=== PATIENT | female | born 1990 | race Caucasian/White ===

== ENCOUNTER 2017-07-03 07:54 | Inpatient (IN) | payer BC ==
[~2017-07-03] VITALS: Ht 167.6 cm; Wt 75.0 kg
--- OUTSIDE RECORDS SUMMARY | ~2017-07-03 | XMS | Clinical Summary ---
Demographics + + + | Address | [address] | | | [place] [address] | + + + | Home Phone | | + + + | Preferred Language | Unknown | + + + | Marital Status | | + + + | Gnosticism Affiliation | 1013 | + + + | Race | Unknown | + + + | Ethnic Group | Unknown | + + + Author + + + | Author | [facility] | | | [facility] | + + + | Organization | [facility] | | | [facility] [place] | + + + | Address | Unknown | + + + | Phone | Unavailable | + + + Support + + + + + | Name | Relationship | Address | Phone | + + + + + | Agustín Rush | ECON | [address] | | | | | [place] | | | | | [address] | | + + + + + Care Team Providers + +------+ + | Care Polymerization Supervisor Name | Role | Phone | + +------+ + | Tammy Russo PA-C | PP | Unavailable | + +------+ + Allergies + + + + + + | Active Allergy | Reactions | Severity | Noted | Comments | | | | | Date | | + + + + + + | Promethazine | Grant Kidd | Low | 02/07/20 | | | | | | 16 | | + + + + + + Current Medications + + +--------+---------+------+------+-------+ | Prescription | Sig. | Disp. | Refills | Star | End | Statu | | | | | | t | Date | s | | | | | | Date | | | + + +--------+---------+------+------+-------+ | PARAGARD | 1 each by | | | | | Activ | | INTRAUTERINE COPPER | Intrauterine route | | | | | e | | IUD | once. | | | | | | + + +--------+---------+------+------+-------+ | | Take 1-2 tablets by | 30 | 0 | 12/0 | | Activ | | HYDROcodone-acetamin | mouth every 6 hours | tablet | | 8/20 | | e | | ophen (NORCO) 5-325 | as needed for Pain | | | 16 | | | | mg per tablet | for up to 30 doses. | | | | | | + + +--------+---------+------+------+-------+ Active Problems Not on file Social History + +-------+ +--------+------+ | Tobacco Use | Types | Packs/Day | Years | Date | | | | | Used | | + +-------+ +--------+------+ | Never Smoker | | | | | + +-------+ +--------+------+ + +---+---+---+ | Smokeless Tobacco: | | | | | Never Used | | | | + +---+---+---+ + + +---------+ + | Alcohol Use | Drinks/We | oz/Week | Comments | | | ek | | | + + +---------+ + | Yes | | | Maybe 1 drink a month | + + +---------+ + + + + | Sex Assigned at | Date Recorded | | | | + + + | Not on file | | + + + Last Filed Vital Signs + + + + | Vital Sign | Reading | Time Taken | + + + + | Blood Pressure | 100/57 | 02/08/2016 1100 PST | + + + + | Pulse | 95 | 02/08/2016 1100 PST | + + + + | Temperature | 37 C (98.6 F) | 02/08/2016 0844 PST | + + + + | Respiratory Rate | 16 | 02/08/2016 1030 PST | + + + + | Oxygen Saturation | 98% | 02/08/2016 1100 PST | + + + + | Inhaled Oxygen | - | - | | Concentration | | | + + + + | Weight | 61 kg (134 lb 7.7 | 02/08/2016654 PST | | | oz) | | + + + + | Height | 167.6 cm (5' 6") | 02/08/2016654 PST | + + + + | Body Mass Index | 21.71 | 02/08/2016654 PST | + + + + Plan of Treatment + + + + + | Health Maintenance | Due Date | Last Done | Comments | + + + + + | Vaccine: HPV (1 of 3 | | | | | - Female 3 Dose | 4 | | | | Series) | | | | + + + + + | Vaccine: | | | | | Dtap/Tdap/Td (1 - | 2 | | | | Tdap) | | | | + + + + + | CERVICAL CANCER | | | | | SCREENING (PAP EVERY | 4 | | | | 3 YEARS 21-64 ) | | | | + + + + + | Vaccine: Influenza | | | | | (Season Ended) | 8 | | | + + + + + Results Not on filefrom Last 3 Months Insurance +---------+--------+ +------+ +---------+ | Payer | Benefi | Subscriber | Type | Phone | Address | | | t Plan | ID | | | | | | / | | | | | | | Group | | | | | +---------+--------+ +------+ +---------+ | [employer] | [employer] | xxxxxxxxxxx | PPO | [phone] | | | [place] [employer] | [phone] | | [phone] | | | | [place] | | | | | | | PPO | | | | | +---------+--------+ +------+ +---------+ + +--------+ +--------+ + + | Guarantor Name | Accoun | Relation to | Date | Phone | Billing Address | | | t Type | Patient | of | | | | | | | | | | + +--------+ +--------+ + + | DENISE RUSH | Person | Self [birth year] Home: | [address] | | | [place] | | 1990 | [phone] [place] | | | [place] | | | [phone] | [phone] | + +--------+ +--------+ + +
[~2017-07-03 07:54] MED LIST: HYDROCODON-ACE1 EA10 PO; IBUPROFEN200 MG PO; OXYCODONE HCL5 MG PO; PERCOCET 5-3251 EACH PO
--- NOTE | 2017-07-06 09:56 | PR ---
[facility] [address] [facility] [place], [place] [address] Signed PP Progress Notes Datetime Report Generated by CPN: 07/06/2017 09:56 SUBJECTIVE: [id number] Pain: Within normal limits Nausea/Vomiting: Denies Flatus: Yes Bowel Movement: Yes Vital Signs: [id number] Vital Signs: Reviewed; Within Normal Limits EXAM: [id number] Cardiovascular: Normal Respiratory: Normal Abdomen/Uterus: Normal Lochia: Normal Vulva/Perineum: Not Done Breasts: Normal CVA Tenderness: Normal Extremities: Normal Incision: Not Applicable Progress: Abnormal Exam Comments: Fundus U-2, firm, nontender IMPRESSION/PLAN/PROCEDURES: [id number] Impression: Normal progression Plan: Discharge Procedures: None Progress Notes: Doing well, ready to go home. Signing Physician: Angel Redding MD Copies: ~ *Electronically Signed* 07/06/17 0956 ANGEL REDDING MD PATIENT NAME: DENISE PATTERSON PROGRESS NOTE DATE OF : [birth year] PHYSICIAN: ANGEL REDDING MD RPT #: [id number] REPORT IS CONFIDENTIAL AND NOT TO BE RELEASED WITHOUT AUTHORIZATION
== END 2017-07-06 11:20 | disposition home or self-care (01) | DRG 775 ==
LOC: FBCO 07:54 → FBC 08:15
PROVIDERS: ADMIT Obstetrics & Gynecology
PROC: 10E0XZZ Delivery of Products of Conception, External Approach (ICD-10-PCS; principal; 2017-07-03)
PROC: 0KQM0ZZ Repair Perineum Muscle, Open Approach (ICD-10-PCS; 2017-07-03)
PROC: 0UQMXZZ Repair Vulva, External Approach (ICD-10-PCS; 2017-07-03)
PROC: 10907ZC Drainage of Amniotic Fluid, Therapeutic from Products of Conception, Via Natural or Artificial Opening (ICD-10-PCS; 2017-07-03)
PROC: 00HU33Z Insertion of Infusion Device into Spinal Canal, Percutaneous Approach (ICD-10-PCS; 2017-07-03)
PROC: 3E0R3BZ Introduction of Anesthetic Agent into Spinal Canal, Percutaneous Approach (ICD-10-PCS; 2017-07-03)
DX: O76 Abnormality in fetal heart rate and rhythm complicating labor and delivery (principal); O70.1 Second degree perineal laceration during delivery; Z3A.39 39 weeks gestation of pregnancy; Z37.0 Single live birth
CPT/HCPCS: 01960; 36415; 83030; 85027; 86850; 86870; 86900; 86901; J2405; J2590; J2790; J3010; J7120